=== PATIENT | female | born 1940 | race Caucasian/White ===

== ENCOUNTER 2018-01-16 09:56 | Outpatient (CLI) | payer OTHER ==
[~2018-01-16 09:56] MED LIST: ALTOPREV10 MG PO; ARICEPT10 MG; CILOSTAZOL50 MG; CORGARD20 MG PO; CYMBALTA20 MG PO; FOLIC ACID1 MG PO; FUROSEMIDE10 MG/M1 PO; HYDROCHLOROTH12.5 M1 PO; LEXAPRO20 MG; LISINOPRIL2.5 MG PO; Lantus 1000 U/10 ML SUBCUTANEO; METFORMIN HYDRO25 GM MC; NAMENDA10 MG; NEURONTIN PO; NOVOLOG100 U/M1 SQ; Neurin-Sl Tablet Sl SL; PLAVIX75 MG PO; POM (MEDICAMENTO EN PISO) PO; PROTONIX40 MG PO; PYRIDOXINE HCL100 MG PO; SINGULAIR 10MG10 MG PO; SINGULAIR4 MG PO; SSD TP; Synthroid PO; TUSSIONEX PENNKI5 ML PO; VITAMIN B-1100 MG PO; VITAMIN B-122500 MCG; XOPENEX0.63 MG/3 IH; ZYNCOF PO
== END 2018-01-16 10:25 | disposition home or self-care (01) ==
LOC: LAB 09:56
DX: D69.59 Other secondary thrombocytopenia (principal); D51.8 Other vitamin B12 deficiency anemias; C91.11 Chronic lymphocytic leukemia of B-cell type in remission; K74.69 Other cirrhosis of liver; R97.0 Elevated carcinoembryonic antigen [CEA]; I63.8 Other cerebral infarction; E04.2 Nontoxic multinodular goiter; I10 Essential (primary) hypertension; K76.89 Other specified diseases of liver; E08.65 Diabetes mellitus due to underlying condition with hyperglycemia; E08.42 Diabetes mellitus due to underlying condition with diabetic polyneuropathy; F03.90 Unspecified dementia, unspecified severity, without behavioral disturbance, psychotic disturbance, mood disturbance, and anxiety; E78.4 Other hyperlipidemia; E04.8 Other specified nontoxic goiter; D50.8 Other iron deficiency anemias; R97.8 Other abnormal tumor markers; E03.8 Other specified hypothyroidism

== ENCOUNTER 2018-04-17 10:27 | Outpatient (CLI) | payer OTHER | END 2018-04-17 10:30 | disposition home or self-care (01) | LOC: LAB 10:27 | DX: C91.11 Chronic lymphocytic leukemia of B-cell type in remission (principal); D69.59 Other secondary thrombocytopenia; D51.8 Other vitamin B12 deficiency anemias; K74.69 Other cirrhosis of liver; R97.0 Elevated carcinoembryonic antigen [CEA]; E04.2 Nontoxic multinodular goiter; I10 Essential (primary) hypertension; K76.9 Liver disease, unspecified; E08.65 Diabetes mellitus due to underlying condition with hyperglycemia; E08.42 Diabetes mellitus due to underlying condition with diabetic polyneuropathy; E03.8 Other specified hypothyroidism; E04.8 Other specified nontoxic goiter; I63.8 Other cerebral infarction; E78.4 Other hyperlipidemia ==

== ENCOUNTER 2019-03-07 15:06 | Emergency (ER) | payer OTHER ==
[~2019-03-07] VITALS: Ht 165.1 cm; Wt 76.2 kg
== END 2019-03-07 22:19 | disposition home or self-care (01) ==
LOC: ER 15:06
DX: R06.02 Shortness of breath (principal); K74.69 Other cirrhosis of liver

== ENCOUNTER 2019-03-13 07:37 | Outpatient (CLI) | payer OTHER | END 2019-03-13 07:50 | disposition home or self-care (01) | LOC: LAB 07:37 | DX: C91.11 Chronic lymphocytic leukemia of B-cell type in remission (principal); D69.59 Other secondary thrombocytopenia; D51.8 Other vitamin B12 deficiency anemias; K74.69 Other cirrhosis of liver; R97.0 Elevated carcinoembryonic antigen [CEA]; I63.89 Other cerebral infarction; E04.2 Nontoxic multinodular goiter; I10 Essential (primary) hypertension; K76.89 Other specified diseases of liver; E08.65 Diabetes mellitus due to underlying condition with hyperglycemia; E08.42 Diabetes mellitus due to underlying condition with diabetic polyneuropathy; F03.90 Unspecified dementia, unspecified severity, without behavioral disturbance, psychotic disturbance, mood disturbance, and anxiety; E78.49 Other hyperlipidemia; E04.8 Other specified nontoxic goiter; C18.9 Malignant neoplasm of colon, unspecified; C22.9 Malignant neoplasm of liver, not specified as primary or secondary; C25.7 Malignant neoplasm of other parts of pancreas; D64.89 Other specified anemias; R10.9 Unspecified abdominal pain ==

== ENCOUNTER 2019-03-22 10:47 | Emergency (ER) | payer OTHER ==
[~2019-03-22] VITALS: Ht 149.9 cm; Wt 76.2 kg
[2019-03-22] MEDS ORDERED: HUMULIN R500 UNIT/2 (11:02)
[2019-03-22] MEDS ORDERED: SYNTHROID50 MCG (11:03)
[2019-03-22] MEDS ORDERED: ALDACTONE50 MG (11:04)
[2019-03-22] MEDS ORDERED: PROPRANOLOL HCL20 MG (11:04)
[2019-03-22] MEDS ORDERED: ENULOSE10 GM/15 M (11:05)
== END 2019-03-22 14:51 | disposition home or self-care (01) ==
LOC: ER 10:47
DX: J20.9 Acute bronchitis, unspecified (principal); R05 Cough; J11.1 Influenza due to unidentified influenza virus with other respiratory manifestations

== ENCOUNTER 2019-08-12 13:37 | Outpatient (CLI) | payer OTHER ==
[~2019-08-12 13:37] MED LIST changes: +ALDACTONE50 MG; +ENULOSE10 GM/15 M; +HUMULIN R500 UNIT/2; +PROPRANOLOL HCL20 MG; +SYNTHROID50 MCG
== END 2019-08-12 13:46 | disposition home or self-care (01) ==
LOC: LAB 13:37
DX: C91.11 Chronic lymphocytic leukemia of B-cell type in remission (principal); D69.59 Other secondary thrombocytopenia

== ENCOUNTER 2019-12-16 09:34 | Outpatient (CLI) | payer OTHER ==
[2019-12-17] MEDS ORDERED: LANTUS SOL100 UNIT/1 (17:58)
== END 2019-12-16 09:40 | disposition home or self-care (01) ==
LOC: LAB 09:34
DX: C91.11 Chronic lymphocytic leukemia of B-cell type in remission (principal); D69.59 Other secondary thrombocytopenia; D51.8 Other vitamin B12 deficiency anemias; K74.69 Other cirrhosis of liver; R97.0 Elevated carcinoembryonic antigen [CEA]; I63.89 Other cerebral infarction; E04.2 Nontoxic multinodular goiter; I10 Essential (primary) hypertension; K76.89 Other specified diseases of liver; E08.65 Diabetes mellitus due to underlying condition with hyperglycemia; E08.42 Diabetes mellitus due to underlying condition with diabetic polyneuropathy; E78.49 Other hyperlipidemia; E04.8 Other specified nontoxic goiter; D50.8 Other iron deficiency anemias

== ENCOUNTER 2019-12-17 17:22 | Emergency (ER) | payer OTHER ==
[~2019-12-17] VITALS: Ht 152.4 cm; Wt 68.9 kg
[2019-12-17] MEDS ORDERED: LANTUS SOL100 UNIT/1 (17:58)
== END 2019-12-18 11:08 | disposition home or self-care (01) ==
LOC: ER 17:22
DX: K70.31 Alcoholic cirrhosis of liver with ascites (principal); F10.21 Alcohol dependence, in remission; I10 Essential (primary) hypertension; E11.9 Type 2 diabetes mellitus without complications; G30.8 Other Alzheimer's disease; F02.80 Dementia in other diseases classified elsewhere, unspecified severity, without behavioral disturbance, psychotic disturbance, mood disturbance, and anxiety; Z79.4 Long term (current) use of insulin

== ENCOUNTER 2020-02-14 21:50 | Emergency (ER) | payer OTHER ==
[~2020-02-14] VITALS: Ht 165.1 cm; Wt 68.0 kg
[~2020-02-14 21:50] MED LIST changes: +LANTUS SOL100 UNIT/1
[2020-02-14] MEDS ORDERED: FUROSEMIDE40 MG PO (22:40)
[2020-02-15] MEDS ORDERED: ALBA-LYBE LIQU178 ML PO (07:28)
== END 2020-02-15 07:51 | disposition home or self-care (01) ==
LOC: ER 21:50
DX: R18.8 Other ascites (principal); R42 Dizziness and giddiness

== ENCOUNTER 2020-05-02 09:13 | Outpatient (CLI) | payer OTHER ==
[~2020-05-02 09:13] MED LIST changes: +ALBA-LYBE LIQU178 ML PO; +FUROSEMIDE40 MG PO
== END 2020-05-02 09:32 | disposition home or self-care (01) ==
LOC: LAB 09:13
PROVIDERS: ATTEND Internal Medicine Hematology & Oncology
DX: R18.8 Other ascites (principal); K74.60 Unspecified cirrhosis of liver; D50.8 Other iron deficiency anemias; D69.49 Other primary thrombocytopenia; D51.8 Other vitamin B12 deficiency anemias; C25.9 Malignant neoplasm of pancreas, unspecified; R97.8 Other abnormal tumor markers; C91.11 Chronic lymphocytic leukemia of B-cell type in remission; D69.59 Other secondary thrombocytopenia; K74.69 Other cirrhosis of liver; R97.0 Elevated carcinoembryonic antigen [CEA]; I63.89 Other cerebral infarction; E04.2 Nontoxic multinodular goiter; I10 Essential (primary) hypertension; K76.89 Other specified diseases of liver; E08.65 Diabetes mellitus due to underlying condition with hyperglycemia; E08.42 Diabetes mellitus due to underlying condition with diabetic polyneuropathy; F03.90 Unspecified dementia, unspecified severity, without behavioral disturbance, psychotic disturbance, mood disturbance, and anxiety; E78.49 Other hyperlipidemia; E04.8 Other specified nontoxic goiter

== ENCOUNTER 2020-05-19 14:36 | Inpatient (IN) | payer OTHER ==
[~2020-05-19] VITALS: Ht 152.4 cm; Wt 62.6 kg
[2020-05-19] MEDS ORDERED: ENULOSE10 GM/15 M PO (14:52)
[2020-05-19] MEDS ORDERED: PRE PROTEIN 2030 ML PO (14:52)
[2020-05-19] MEDS ORDERED: OMEPRAZOLE MAGN20 MG (14:53)
== END 2020-06-03 16:23 | disposition home or self-care (01) | DRG 812 ==
LOC: ER 14:36 → SEC-K 18:55 → SURH 18:55
PROVIDERS: ADMIT Internal Medicine; ATTEND Internal Medicine
PROC: 30243N1 Transfusion of Nonautologous Red Blood Cells into Central Vein, Percutaneous Approach (ICD-10-PCS; principal; 2020-05-20)
PROC: 05HY33Z Insertion of Infusion Device into Upper Vein, Percutaneous Approach (ICD-10-PCS; 2020-05-20)
PROC: 3E0F7GC Introduction of Other Therapeutic Substance into Respiratory Tract, Via Natural or Artificial Opening (ICD-10-PCS; 2020-05-20)
DX: D50.8 Other iron deficiency anemias (principal); C91.11 Chronic lymphocytic leukemia of B-cell type in remission; R18.8 Other ascites; D69.3 Immune thrombocytopenic purpura; N39.0 Urinary tract infection, site not specified; D47.1 Chronic myeloproliferative disease; D51.8 Other vitamin B12 deficiency anemias; B96.1 Klebsiella pneumoniae [K. pneumoniae] as the cause of diseases classified elsewhere; K74.69 Other cirrhosis of liver; I10 Essential (primary) hypertension; E11.9 Type 2 diabetes mellitus without complications; J06.9 Acute upper respiratory infection, unspecified; G30.9 Alzheimer's disease, unspecified; F02.80 Dementia in other diseases classified elsewhere, unspecified severity, without behavioral disturbance, psychotic disturbance, mood disturbance, and anxiety; I48.91 Unspecified atrial fibrillation; E03.8 Other specified hypothyroidism

== ENCOUNTER 2020-08-05 09:45 | Outpatient (CLI) | payer OTHER ==
[~2020-08-05 09:45] MED LIST changes: +ENULOSE10 GM/15 M PO; +OMEPRAZOLE MAGN20 MG; +PRE PROTEIN 2030 ML PO
== END 2020-08-05 10:06 | disposition home or self-care (01) ==
LOC: LAB 09:45
PROVIDERS: ATTEND Internal Medicine Hematology & Oncology
DX: D50.8 Other iron deficiency anemias (principal); I10 Essential (primary) hypertension; D51.8 Other vitamin B12 deficiency anemias; C25.9 Malignant neoplasm of pancreas, unspecified; R97.8 Other abnormal tumor markers; R97.0 Elevated carcinoembryonic antigen [CEA]; R77.2 Abnormality of alphafetoprotein; C91.11 Chronic lymphocytic leukemia of B-cell type in remission; D69.59 Other secondary thrombocytopenia; K74.69 Other cirrhosis of liver; I63.89 Other cerebral infarction; E04.2 Nontoxic multinodular goiter; K76.89 Other specified diseases of liver; E08.65 Diabetes mellitus due to underlying condition with hyperglycemia; E08.42 Diabetes mellitus due to underlying condition with diabetic polyneuropathy; F03.90 Unspecified dementia, unspecified severity, without behavioral disturbance, psychotic disturbance, mood disturbance, and anxiety; E78.89 Other lipoprotein metabolism disorders; E04.8 Other specified nontoxic goiter; N39.0 Urinary tract infection, site not specified; B96.29 Other Escherichia coli [E. coli] as the cause of diseases classified elsewhere

== ENCOUNTER 2020-09-17 23:08 | Inpatient (IN) | payer OTHER ==
[~2020-09-17] VITALS: Ht 152.4 cm; Wt 56.7 kg
[2020-09-17] MEDS ORDERED: PRE PROTEIN1 EACH (23:46)
[2020-09-17] MEDS ORDERED: INDERAL (23:47)
[2020-09-17] MEDS ORDERED: PREVASTATIN (23:47)
[2020-09-19] MEDS ORDERED: PRAVASTATIN SOD40 MG (09:58)
[2020-09-19] MEDS ORDERED: PROPRANOLOL HCL20 MG (09:58)
== END 2020-10-02 14:05 | disposition home or self-care (01) | DRG 70 ==
LOC: ER 23:08 → MEDJ 09-18 12:13 → ICU-2 09-18 12:13 → MEDJ 09-25 17:21 → MEDI 09-25 17:21 → MEDJ 09-25 17:21
PROVIDERS: ADMIT Internal Medicine; ATTEND Internal Medicine
PROC: B020ZZZ Computerized Tomography (CT Scan) of Brain (ICD-10-PCS; principal; 2020-09-18)
PROC: B030ZZZ Magnetic Resonance Imaging (MRI) of Brain (ICD-10-PCS; 2020-09-19)
PROC: 05HY33Z Insertion of Infusion Device into Upper Vein, Percutaneous Approach (ICD-10-PCS; 2020-09-20)
PROC: B246ZZZ Ultrasonography of Right and Left Heart (ICD-10-PCS; 2020-09-23)
PROC: 4A12X4Z Monitoring of Cardiac Electrical Activity, External Approach (ICD-10-PCS; 2020-09-25)
PROC: 0W9G3ZZ Drainage of Peritoneal Cavity, Percutaneous Approach (ICD-10-PCS; 2020-09-26)
PROC: 4A033R1 Measurement of Arterial Saturation, Peripheral, Percutaneous Approach (ICD-10-PCS; 2020-09-26)
DX: G93.41 Metabolic encephalopathy (principal); K65.2 Spontaneous bacterial peritonitis; N39.0 Urinary tract infection, site not specified; D69.3 Immune thrombocytopenic purpura; N18.4 Chronic kidney disease, stage 4 (severe); F10.288 Alcohol dependence with other alcohol-induced disorder; F10.20 Alcohol dependence, uncomplicated; F02.80 Dementia in other diseases classified elsewhere, unspecified severity, without behavioral disturbance, psychotic disturbance, mood disturbance, and anxiety; E11.9 Type 2 diabetes mellitus without complications; E87.5 Hyperkalemia; I48.91 Unspecified atrial fibrillation; K72.90 Hepatic failure, unspecified without coma; K71.7 Toxic liver disease with fibrosis and cirrhosis of liver; K70.31 Alcoholic cirrhosis of liver with ascites; D73.2 Chronic congestive splenomegaly; R06.02 Shortness of breath; R79.89 Other specified abnormal findings of blood chemistry; G30.8 Other Alzheimer's disease; B96.4 Proteus (mirabilis) (morganii) as the cause of diseases classified elsewhere; Z20.828 Contact with and (suspected) exposure to other viral communicable diseases; L89.151 Pressure ulcer of sacral region, stage 1; S50.311A Abrasion of right elbow, initial encounter; S40.212A Abrasion of left shoulder, initial encounter
CPT/HCPCS: 70553